=== PATIENT | female | born 1980 | race Caucasian/White ===

== ENCOUNTER 2019-09-26 21:00 | Emergency (ER) | payer MEDICAID, SELFPAY ==
[2019-09-26 21:11] VITALS: BP 143/103; PULSE 91; RESP 18; TEMP 36.6; O2SAT 97; BMI 34.3
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
--- NOTE | 2019-09-26 21:55 | XR_ITS ---
WS: [id number] RIGHT FEMUR: 2 VIEW(S) TECHNIQUE: AP and lateral. HISTORY: right thigh pain COMPARISON: None available. No fracture or dislocation. Soft tissues are unremarkable. No foreign body or calcification. XR/XR femur RT min 2V* [id number] Impression: Normal RIGHT femur.
[2019-09-26] MEDS: HYDROcodone-acetaminophen 7.5-325 mg Tablet 1 TAB PO (22:04)
[2019-09-26 22:48] VITALS: TEMP 37.4
[2019-09-26] MEDS: LORazepam 1 mg Tablet PO (22:52)
[2019-09-26] MEDS: orphenadrine 30 mg/mL Inj 2 mL 60 MG IM (22:53)
[2019-09-26 23:20] VITALS: BP 112/72; PULSE 72; RESP 16; O2SAT 97
== END 2019-09-26 23:21 | disposition home or self-care (01) ==
PROVIDERS: Emergency Provider Physician Assistant
DX: S76.111A Strain of right quadriceps muscle, fascia and tendon, initial encounter (principal); X58.XXXA Exposure to other specified factors, initial encounter; F17.210 Nicotine dependence, cigarettes, uncomplicated
CPT/HCPCS: 73552; 96372; 99281; J2360

== ENCOUNTER 2019-10-20 11:10 | Emergency (ER) | payer MEDICAID, SELFPAY ==
[2019-10-20] VITALS (7 sets, daily range): BP systolic 100–137; BP diastolic 52–106; PULSE 68–94; RESP 16–18; TEMP 36.7; O2SAT 94–98; BMI 34.3
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
--- NOTE | 2019-10-20 11:29 | CT_ITS ---
WS: [id number] NONCONTRAST CT PELVIS AND RIGHT FEMUR INDICATION: Pain right pelvis DLP: 905 mgy/cm TECHNIQUE: Noncontrast CT pelvis and right femur coronal and sagittal reformatted images FINDINGS: Right hip is normal in appearance. Normal acetabulum. Normal right femoral head and neck. N o acute right hip fractures. Normal pubic rami. Left hip is normal. Lytic lesion along the right proximal femoral shaft involving the outer cortex with a central bony ni dus. Prominent associated periosteal reaction. Lytic lesion measures approximately 18 x 4 mm. Finding s are suspicious for osteomyelitis with sequestrum. No draining sinus tract. Mild subcutaneous edema in the right thigh. Incidental fat-containing umbilical hernia. Normal iliac wings. Sacrum is normal in appearance. Mild disc bulging L5-S1. Notified Capri Spann at 10/20/2019 1:[address]/CT femur RT wo con* [id number] IMPRESSION: 1. Right hip is normal in appearance. No acute fractures. 2. Lytic lesion in the right femoral shaft cortex measuring 18 x 5 mm extendin g to the cortex. Central sclerotic nidus with overlying periosteal reaction. Pr imary differential consideration is osteomyelitis with bone sequestrum. This co uld be further evaluated with MRI. Recommend correlation for infection and orth opedic consultation.
--- NOTE | 2019-10-20 11:29 | CT_ITS ---
WS: [id number] NONCONTRAST CT PELVIS AND RIGHT FEMUR INDICATION: Pain right pelvis DLP: 905 mgy/cm TECHNIQUE: Noncontrast CT pelvis and right femur coronal and sagittal reformatted images FINDINGS: Right hip is normal in appearance. Normal acetabulum. Normal right femoral head and neck. N o acute right hip fractures. Normal pubic rami. Left hip is normal. Lytic lesion along the right proximal femoral shaft involving the outer cortex with a central bony ni dus. Prominent associated periosteal reaction. Lytic lesion measures approximately 18 x 4 mm. Finding s are suspicious for osteomyelitis with sequestrum. No draining sinus tract. Mild subcutaneous edema in the right thigh. Incidental fat-containing umbilical hernia. Normal iliac wings. Sacrum is normal in appearance. Mild disc bulging L5-S1. Notified Capri Spann at 10/20/2019 1:[address]/CT bony pelvis [id number] IMPRESSION: 1. Right hip is normal in appearance. No acute fractures. 2. Lytic lesion in the right femoral shaft cortex measuring 18 x 5 mm extendin g to the cortex. Central sclerotic nidus with overlying periosteal reaction. Pr imary differential consideration is osteomyelitis with bone sequestrum. This co uld be further evaluated with MRI. Recommend correlation for infection and orth opedic consultation.
--- NOTE | 2019-10-20 11:29 | USCV_ITS ---
Burak Lópze Age: 39 Gender: F : 1980 Exam Date: 10/20/2019 12:08 Ordering Phys: Capri Spann DO Technologist: Chanel Quinones Exam Location[place] [facility] [place]ication: HIP AND THIGH PAIN HISTORY: swelling X 3 WEEKS PROCEDURES: Venous duplex imaging was performed in only the right lower extremity. The following venous structures were evaluated: common femoral vein, profunda vein, proximal portion of the greater saphenous vein, superficial femoral vein, and the popliteal vein. In addition, the posterior tibial and peroneal trunk were evaluated. FINDINGS: Normal 2-D Doppler and augmentation and compressibility throughout the lower extremity venous structures. Additional imaging through the proximal calf veins also reveals no thrombus. Limited evaluation of the greater saphenous vein is patent with no thrombus. CONCLUSIONS No DVT right lower extremity. Dr. Angely Bhakta DO (Electronically Signed) Final Date: 20 October 2019 12:59 S
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
[2019-10-20] MEDS: sodium chloride 0.9% 1,000 ML 100 ML IV (11:49)
[2019-10-20 11:53] LABS: Basophils # 0.1 10^3/uL (0.0-0.1); Basophils % 0.7 %; Eosinophils # 0.1 10^3/uL (0.0-0.8); Eosinophils % 1.3 %; Hematocrit 43.9 % (37.0-47.0); Hemoglobin 14.4 g/dL (11.5-15.3); Lymphocytes # 2.9 10^3/uL (0.8-4.8); Lymphocytes % 27.7 %; Mean Corpuscular HGB Conc 32.8 g/dL (30.0-36.0); Mean Corpuscular Hemoglobin 28.1 pg (28.0-34.0); Mean Corpuscular Volume 85.6 fL (81-99); Mean Platelet Volume 8.8 fL (7.4-10.4); Monocytes # 0.4 10^3/uL (0.2-0.9); Monocytes % 3.6 %; Neutrophils # 6.9 10^3/uL (1.8-7.7); Neutrophils % 66.1 %; Nucleated Red Blood Cells % 0 %; Platelet Count 305 10^3/cmm (130-400); Red Blood Count 5.13 10^6/uL (4.1-5.3); Red Cell Distribution Width 12.9 % (12.1-15.1); White Blood Count 10.4 10^3/uL (4.0-10.0)
[2019-10-20 12:03] LABS: HCG, Serum Qual Negative (Negative)
[2019-10-20 12:19] LABS: Alanine Aminotransferase 15 U/L (0-33); Albumin Level 3.8 g/dL (3.5-5.2); Alkaline Phosphatase 78 IU/L (35-105); Anion Gap 13.8 (5-19); Aspartate Amino Transferase 16 U/L (0-32); Blood Urea Nitrogen 9 mg/dL (6-20); Calcium 9.5 mg/dL (8.5-10.5); Carbon Dioxide 26 mmol/L (22-29); Chloride 96 mmol/L (98-107); Creatine Phosphokinase 37 U/L (26-192); Globulin 4.4 g/dL (1.3-4.6); Glomerular Filtration Rate 111.3 mL/min (90-130); Glucose 310 mg/dL (65-115); Potassium 3.8 mmol/L (3.5-5.1); Sodium 132 mmol/L (136-145); Total Bilirubin 0.2 mg/dL (0.15-1.2); Total Protein 8.2 g/dL (6.6-8.7)
[2019-10-20] MEDS: nicotine 21 mg Patch 1 PATCH TRANSDERMA (14:18)
[2019-10-20 14:19] LABS: Add Urine Culture? No; Bacteria Urine 2+; Bilirubin Urine Neg (NEGATIVE); Blood Urine Neg (Negative); Glucose Urine UA 4+ (Normal); Ketones Urine Negative (Negative); Leukocyte Esterase Urine Negative (Negative); Mucus Urine TRACE; Nitrate Urine Negative (Negative); Protein Urine Neg (Negative); Squamous Epithelial Cell Urine 25-40 (0-5); Urine Appearance Cloudy (CLEAR); Urine Color Yellow (Yellow); Urobilinogen Urine Norm (Negative)
[2019-10-20] MEDS: LORazepam 1 mg Tablet PO (14:19)
[2019-10-20] MEDS: ondansetron 2 mg/ML SDV 2 mL 4 MG IVP (14:24)
[2019-10-20] MEDS: morphine 4 mg/mL SDV 1 mL IVP ×2 (14:25→16:29)
[2019-10-20 14:45] LABS: Amphetamines Screen Urine Negative (Negative); Barbiturates Screen Urine Negative (Negative); Benzodiazepines Screen Urine Negative (Negative); Cocaine Screen Urine Negative (Negative); Opiate Screen Urine Negative (Negative); PCP Screen Urine Negative (Negative); THC Screen Urine Positive (Negative)
[2019-10-20 15:13] LABS: C Reactive Protein 18.9 mg/L (0.0-4.9)
[2019-10-20 15:38] LABS: Erythrocyte Sedimentation Rate 38 mm/hr (0-15)
[2019-10-20] MEDS: HYDROmorphone 1 mg/mL INJ 1 mL 0.5 MG IVP (18:13)
== END 2019-10-20 18:48 | disposition short-term general hospital (02) ==
PROVIDERS: Emergency Provider Emergency Medicine
DX: E11.69 Type 2 diabetes mellitus with other specified complication (principal); M86.9 Osteomyelitis, unspecified; F17.200 Nicotine dependence, unspecified, uncomplicated
CPT/HCPCS: 36415; 72192; 73700; 80053; 80307; 81001; 82550; 84702; 84703; 85025; 85651; 86140; 87040; 93971; 96365; 96375; 96376; 99283; J0131; J1170; J2270; J2405; J7030

== ENCOUNTER 2019-11-05 09:17 | Outpatient (CLI) | payer MEDICAID, SELFPAY ==
[2019-11-05 11:58] LABS: Basophils # 0.1 10^3/uL (0.0-0.1); Basophils % 0.5 %; Eosinophils # 0.1 10^3/uL (0.0-0.8); Eosinophils % 0.6 %; Hematocrit 44.1 % (37.0-47.0); Lymphocytes # 2.9 10^3/uL (0.8-4.8); Lymphocytes % 22.6 %; Mean Corpuscular Hemoglobin 28.8 pg (28.0-34.0); Mean Corpuscular Volume 84.6 fL (81-99); Mean Platelet Volume 8.8 fL (7.4-10.4); Monocytes # 0.5 10^3/uL (0.2-0.9); Monocytes % 4.1 %; Neutrophils # 9.4 10^3/uL (1.8-7.7); Neutrophils % 71.9 %; Nucleated Red Blood Cells % 0 %; Platelet Count 331 10^3/cmm (130-400); Red Blood Count 5.21 10^6/uL (4.1-5.3); Red Cell Distribution Width 12.7 % (12.1-15.1)
[2019-11-05 12:12] LABS: Alanine Aminotransferase 18 U/L (0-33); Albumin Level 4.2 g/dL (3.5-5.2); Alkaline Phosphatase 85 IU/L (35-105); Anion Gap 16.7 (5-19); Aspartate Amino Transferase 16 U/L (0-32); Blood Urea Nitrogen 11 mg/dL (6-20); C Reactive Protein 91.3 mg/L (0.0-4.9); Calcium 9.9 mg/dL (8.5-10.5); Carbon Dioxide 23 mmol/L (22-29); Chloride 98 mmol/L (98-107); Globulin 4.8 g/dL (1.3-4.6); Glomerular Filtration Rate 137.4 mL/min (90-130); Glucose 213 mg/dL (65-115); Potassium 3.7 mmol/L (3.5-5.1); Sodium 134 mmol/L (136-145); Total Bilirubin 0.5 mg/dL (0.15-1.2)
[2019-11-05 12:47] LABS: Erythrocyte Sedimentation Rate 71 mm/hr (0-15)
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
== END 2019-11-05 09:18 | disposition home or self-care (01) ==
PROVIDERS: Visit Provider Internal Medicine Medical Oncology
DX: R93.6 Abnormal findings on diagnostic imaging of limbs (principal); R00.0 Tachycardia, unspecified; M79.604 Pain in right leg; K58.9 Irritable bowel syndrome, unspecified; K21.9 Gastro-esophageal reflux disease without esophagitis; E11.42 Type 2 diabetes mellitus with diabetic polyneuropathy; F41.8 Other specified anxiety disorders; E78.5 Hyperlipidemia, unspecified; F17.210 Nicotine dependence, cigarettes, uncomplicated; Z79.82 Long term (current) use of aspirin; Z79.891 Long term (current) use of opiate analgesic; Z79.84 Long term (current) use of oral hypoglycemic drugs
CPT/HCPCS: 36415; 80053; 85025; 85651; 86140; 87040; 87077; 87186; 87205; 99205